=== PATIENT | female | born 1955 | race African-American/Black ===

== ENCOUNTER → 2017-11-26 | Day surgery (SDC) | payer OTHER ==
[~2017-11-26] VITALS: Ht 160 cm; Wt 67.6 kg
--- NOTE | 2017-11-26 08:49 | Operative Report ---
Operative/Inv Procedure Report Surgery Date: 11/26/17 Name of Procedure: Hysteroscopy, dilation and curettage Pre-Operative Diagnosis: Postmenopausal bleeding, thickened endometrium Post-Operative Diagnosis: Same Estimated Blood Loss: less than 50ml Surgeon/Home Aide: Otoniel Guevara MD Anesthesia: moderate sedation IV Fluids: Lactated Ringer's Urine Output: Straight catheter 100 mL clear urine at the beginning of the procedure Specimens: Polyp, EMC Complications: None Condition: Stable Operative Indication: 62-year-old with postmenopausal bleeding, ultrasound and MRI showed thickened endometrium, polyp Operative/Procedure Note Note: The patient was taken to the operating room where moderate sedation anesthesia was obtained without difficulty. She was then examined under anesthesia and found to have a small anteverted uterus. She was then placed in the dorsal lithotomy position and prepared and draped in the usual sterile fashion. A bivalve speculum was then placed in the patient's vagina and the anterior lip of the cervix grasped with the single-tooth tenaculum. Cervix was dilated to accommodate a diagnostic hysteroscope, hysteroscope was gently inserted into the uterine cavity findings noted above. Hysteroscope was withdrawn from the uterine cavity, a polyp forcep was used to remove the polyps, and then the sharp curette was reversed inserted into the uterine cavity, a sharp curettage was performed until a gritty texture was noted. The hysteroscope was reintroduced to the uterine cavity, normal findings noted. There was minimal bleeding noted and the tenaculum removed with good hemostasis noted. All instruments were removed from the patient's vagina, all instruments and laps counts were correct. Patient tolerated the procedure well, the patient was taken to the recovery room in stable condition. Findings: Anteverted uterus, sounded 8 cm, small uterine polyp at right side seen.
== END ==
LOC: STS 01:20
DX: N95.0 Postmenopausal bleeding (principal); N84.0 Polyp of corpus uteri; N85.4 Malposition of uterus; R93.8 Abnormal findings on diagnostic imaging of other specified body structures
CPT/HCPCS: 88305; J0131; J2250; J2405